=== PATIENT | female | born 1970 | race Caucasian/White ===

== ENCOUNTER 2019-06-30 09:27 | Emergency (ER) | payer BC ==
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
[2019-06-30 10:41] VITALS: BP 124/78
== END 2019-06-30 11:54 | disposition home or self-care (01) ==
LOC: UCCORT 09:27
DX: S63.601A Unspecified sprain of right thumb, initial encounter (principal); V18.0XXA Pedal cycle driver injured in noncollision transport accident in nontraffic accident, initial encounter; Y93.55 Activity, bike riding; Y92.9 Unspecified place or not applicable; Z87.891 Personal history of nicotine dependence
CPT/HCPCS: 99211; G0463